=== PATIENT | female | born 1945 | race Caucasian/White ===

== ENCOUNTER 2019-11-27 06:11 | Day surgery (SDC) | payer MEDICARE ==
[2019-11-19 14:18] LABS: BASOPHILS % (AUTO) 0.7 % (0-1); EOSINOPHILS # (AUTO) 0.1 X10'3 (0-0.9); EOSINOPHILS % (AUTO) 1.7 % (0-6); LYMPHOCYTES # (AUTO) 1.9 X10'3 (1.1-4.8); LYMPHOCYTES % (AUTO) 29.4 % (21-51); MEAN CORPUSCULAR HEMOGLOBIN 34.9 PG (27.0-31.0); MEAN CORPUSCULAR HGB CONC 33.8 g/dL (33.0-36.5); MEAN CORPUSCULAR VOLUME 103.4 FL (78-98); MONOCYTES # (AUTO) 0.7 X10'3 (0-0.9); MONOCYTES % (AUTO) 10.1 % (2-12); NEUTROPHILS # (AUTO) 3.8 X10'3 (1.8-7.7); NEUTROPHILS % (AUTO) 58.1 % (42-75); PRE OP HEMATOCRIT 41.1 % (35.0-45.0); PRE OP HEMOGLOBIN 13.9 g/dL (12.0-16.0); PRE OP PLATELET COUNT 308 X10'3 (140-440); RED BLOOD COUNT 3.98 X10'6 (4.20-5.60); RED CELL DISTRIBUTION WIDTH 13.9 % (11.5-14.5)
[2019-11-19 14:37] LABS: ALBUMIN 3.5 G/DL (3.4-5.0); ALBUMIN/GLOBULIN RATIO 0.9 (1.1-1.5); ALKALINE PHOSPHATASE 80 IU/L (46-116); BLOOD UREA NITROGEN 12 MG/DL (7-18); BUN/CREATININE RATIO 12.9 (6.6-38.0); CALCIUM 8.9 MG/DL (8.5-10.1); CHLORIDE 106 MMOL/L (99-107); CREATININE 0.93 MG/DL (0.40-0.90); PRE OP ALT 16 U/L (30-65); PRE OP ANION GAP 8 (8-16); PRE OP AST 19 U/L (10-37); PRE OP BILIRUB, TOTAL 0.4 MG/DL (0.0-1.0); PRE OP GLUCOSE 110 MG/DL (70-104); PRE OP POTASSIUM 4.1 MMOL/L (3.4-5.1); PRE OP SODIUM 142 MMOL/L (135-145); TOTAL CARBON DIOXIDE 27.7 MMOL/L (24-32); TOTAL PROTEIN 7.3 G/DL (6.4-8.2); eGFR 59 ML/MIN
[~2019-11-27] VITALS: Ht 167.6 cm; Wt 90.7 kg
[~2019-11-27 06:11] MED LIST: CALC-855 PO; CITA20TA28 PO; DENO60DI SUBCUT; LISI40TA4 PO; METF-900 PO; OMEP20CA15 PO; SIMV-42 PO; VENL-191 PO; cefazolin/dext.iso 2gm/50ml 50 ML IV ONE; famotidine 20mg tablet PO ONE; ringers solution, lacted 1,000 ML IV SCH
[2019-11-27] MEDS ORDERED: BUPIVAcaine/PF 2.5mg/ml (0.25%) 10ml vial ONE (06:39)
[2019-11-27 06:50] VITALS: BP_SYST 162; BP_SYST 169; BP_DIAS 102; BP_DIAS 91
[2019-11-27] MEDS ORDERED: ringers solution, lacted 1,000 ML IV SCH (07:16)
[2019-11-27] MEDS ORDERED: meperidine/PF 25mg/ml syringe IV PRN ×3 (07:20)
[2019-11-27] MEDS ORDERED: proCHLORperazine 10 MG/2 ml inj IV PRN (07:20)
[2019-11-27] MEDS ORDERED: LIDOcaine 0.5% (5mg/ml) 50ml vial ONE (07:20)
[2019-11-27] MEDS ORDERED: ondansetron/PF 4mg/2ml inj IV PRN (07:20)
[2019-11-27] MEDS ORDERED: morphine 2 MG/ML inj. syringe IV PRN (07:20)
[2019-11-27] MEDS ORDERED: morphine 4 MG/ML inj SYRINge IV PRN (07:20)
[2019-11-27] MEDS ORDERED: fentaNYL/PF 50MCG/1 ML 2ML syringe ONE (08:25)
[2019-11-27] MEDS ORDERED: midazolam 2 mg/2 ml injection ONE (08:25)
[2019-11-27 08:50] VITALS: BP 134/70
--- NOTE | 2019-11-27 08:50 | NUR ---
Received from OR via [facility] , accompanied by Anesthesiologist LYDIA and report given by Anesthesiolgist. PATIENT WITH 20G PIV IN RIGHT UE RUNNING LR AT 100. DENIES PAIN . LEFT WRIST DRESSING IS CDI. VSS.
[2019-11-27 09:00] VITALS: BP 133/86
[2019-11-27 09:10] VITALS: BP 135/89
[2019-11-27 09:20] VITALS: BP 130/87
--- NOTE | 2019-11-27 09:30 | NUR ---
I HAVE REVIEWED D/C INSTRUCTIONS WITH PATIENT AND FAMILY AND THEY HAVE VERBALIZED UNDERSTANDING. PATIENT D/C HOME WITH ALL BELONGINGS AND FAMILY GAVE TRANSPORT HOME. Addendum: 11/27/19 at 0939 by Ken Schafer RN, RN Amended: Links added.
== END 2019-11-27 09:30 | disposition home or self-care (01) ==
LOC: PAS 06:11
PROVIDERS: ATTEND Orthopaedic Surgery Hand Surgery
DX: G56.02 Carpal tunnel syndrome, left upper limb (principal); I10 Essential (primary) hypertension; F41.8 Other specified anxiety disorders; M81.0 Age-related osteoporosis without current pathological fracture; K21.9 Gastro-esophageal reflux disease without esophagitis; Z79.899 Other long term (current) drug therapy; Z98.890 Other specified postprocedural states; Z87.891 Personal history of nicotine dependence; Z72.89 Other problems related to lifestyle; Z11.59 Encounter for screening for other viral diseases
CPT/HCPCS: 36415; 64721; 80053; 82948; 85025; 93005; J2001; J2250; J3010; J3490; U0003; A4215; J7120

== ENCOUNTER 2020-01-11 06:59 | Day surgery (SDC) | payer MEDICARE ==
[2020-01-05 11:18] LABS: BASOPHILS % (AUTO) 0.8 % (0-1); EOSINOPHILS # (AUTO) 0.1 X10'3 (0-0.9); EOSINOPHILS % (AUTO) 2.2 % (0-6); LYMPHOCYTES # (AUTO) 1.4 X10'3 (1.1-4.8); LYMPHOCYTES % (AUTO) 24.4 % (21-51); MEAN CORPUSCULAR HEMOGLOBIN 34.5 PG (27.0-31.0); MEAN CORPUSCULAR HGB CONC 33.3 g/dL (33.0-36.5); MEAN CORPUSCULAR VOLUME 103.5 FL (78-98); MEAN PLATELET VOLUME 7.8 FL (7.4-10.4); MONOCYTES # (AUTO) 0.6 X10'3 (0-0.9); MONOCYTES % (AUTO) 9.7 % (2-12); NEUTROPHILS # (AUTO) 3.7 X10'3 (1.8-7.7); NEUTROPHILS % (AUTO) 62.9 % (42-75); PRE OP HEMATOCRIT 41.7 % (35.0-45.0); PRE OP HEMOGLOBIN 13.9 g/dL (12.0-16.0); PRE OP PLATELET COUNT 315 X10'3 (140-440); RED BLOOD COUNT 4.03 X10'6 (4.20-5.60); RED CELL DISTRIBUTION WIDTH 13.8 % (11.5-14.5)
[2020-01-05 11:29] LABS: ALBUMIN 3.6 G/DL (3.4-5.0); ALBUMIN/GLOBULIN RATIO 0.9 (1.1-1.5); ALKALINE PHOSPHATASE 76 IU/L (46-116); BLOOD UREA NITROGEN 10 MG/DL (7-18); BUN/CREATININE RATIO 11.8 (6.6-38.0); CHLORIDE 106 MMOL/L (99-107); CREATININE 0.85 MG/DL (0.40-0.90); PRE OP ALT 19 U/L (30-65); PRE OP ANION GAP 8 (8-16); PRE OP AST 15 U/L (10-37); PRE OP BILIRUB, TOTAL 0.5 MG/DL (0.0-1.0); PRE OP GLUCOSE 95 MG/DL (70-104); PRE OP POTASSIUM 4.3 MMOL/L (3.4-5.1); PRE OP SODIUM 141 MMOL/L (135-145); TOTAL CARBON DIOXIDE 27.5 MMOL/L (24-32); TOTAL PROTEIN 7.6 G/DL (6.4-8.2); eGFR 65 ML/MIN
[~2020-01-11] VITALS: Ht 167.6 cm; Wt 91.0 kg
[~2020-01-11 06:59] MED LIST changes: +ceFAZolin 2gm in dextrose, iso 50 ML IV ONE; -cefazolin/dext.iso 2gm/50ml 50 ML IV ONE
[2020-01-11 07:20] VITALS: BP_SYST 130; BP_DIAS 82; BP_DIAS 92
[2020-01-11] MEDS ORDERED: LIDOcaine 0.5% (5mg/ml) 50ml vial ONE (08:00)
[2020-01-11] MEDS ORDERED: fentaNYL/PF 50MCG/1 ML 2ML syringe ONE ×2 (08:05→09:25)
[2020-01-11] MEDS ORDERED: MIDAZolam 1mg/ml 10ml vial ONE (08:05)
[2020-01-11] MEDS ORDERED: ringers solution, lacted 1,000 ML IV SCH (08:13)
[2020-01-11] MEDS ORDERED: morphine 4 MG/ML inj SYRINge IV PRN (08:15)
[2020-01-11] MEDS ORDERED: fentaNYL/PF 50MCG/1 ML 2ML syringe IV PRN ×2 (08:15)
[2020-01-11] MEDS ORDERED: morphine 2 MG/ML inj. syringe IV PRN (08:15)
[2020-01-11] MEDS ORDERED: labetalol 20mg/4ml (5mg/ml) syringe IV PRN (08:15)
[2020-01-11] MEDS ORDERED: hydrALAZINE 20mg/ml inj. IV PRN (08:15)
[2020-01-11] MEDS ORDERED: ondansetron/PF 4mg/2ml inj IV PRN (08:15)
[2020-01-11] MEDS ORDERED: LIDOcaine 2% (20mg/ml) 5ml vial ONE (08:56)
[2020-01-11] MEDS ORDERED: propofol inj 20 ML IV ONE (08:56)
[2020-01-11] MEDS ORDERED: BUPIVAcaine/PF 2.5mg/ml (0.25%) 10ml vial ONE (09:15)
[2020-01-11] MEDS ORDERED: MIDAZolam 5mg/5ml vial ONE (09:25)
[2020-01-11] MEDS ORDERED: labetalol 20mg/4ml (5mg/ml) syringe IV ONE (09:43)
[2020-01-11 09:49] VITALS: BP 145/74
--- NOTE | 2020-01-11 09:49 | NUR ---
Received from OR via [facility], accompanied by Anesthesiologist DR Borges and report given by Anesthesiolgist. PATIENT A&OX4, DENIES PAIN, V/S WNL, NEUROVASCULAR CHECKS INTACT, 20G PIV LUE, SCD ON, DRESSING TO RIGHT WRIST CDI ELEVATED WITH ICEBAG APPLIED.
[2020-01-11 10:00] VITALS: BP 140/85
[2020-01-11 10:10] VITALS: BP 151/82
[2020-01-11 10:20] VITALS: BP 128/76
[2020-01-11 10:30] VITALS: BP 134/80
--- NOTE | 2020-01-11 10:49 | NUR ---
PATIENT A&OX4, DENIES PAIN, V/S WNL, NEUROVASCULAR CHECKS INTACT, 20G PIV LUE D/C, SCD OFF, DRESSING TO RIGHT WRIST CDI ELEVATED WITH ICEBAG APPLIED. I HAVE REVIEWED D/C INSTRUCTIONS WITH PATIENT AND FAMILY AND THEY HAVE VERBALIZED UNDERSTANDING. ALL BELONGINGS RETURNED TO PATIENT. PATIENT D/C HOME WITH ALL BELONGINGS AND FAMILY GAVE TRANSPORT HOME. MD STATES OKAY TO TAKE IBUPROFEN AND TYLENOL.
[2020-01-11] MEDS ORDERED: BUPIVAcaine/PF 2.5mg/ml (0.25%) 10ml vial IJ ONE (14:46)
== END 2020-01-11 10:49 | disposition home or self-care (01) ==
LOC: PAS 06:59
PROVIDERS: ATTEND Orthopaedic Surgery Hand Surgery
DX: G56.01 Carpal tunnel syndrome, right upper limb (principal); Z11.59 Encounter for screening for other viral diseases; F41.8 Other specified anxiety disorders; E11.9 Type 2 diabetes mellitus without complications; I10 Essential (primary) hypertension; M81.0 Age-related osteoporosis without current pathological fracture; Z98.890 Other specified postprocedural states; M19.90 Unspecified osteoarthritis, unspecified site; Z87.891 Personal history of nicotine dependence; Z72.89 Other problems related to lifestyle; Z79.899 Other long term (current) drug therapy; Z68.34 Body mass index [BMI] 34.0-34.9, adult; Z85.3 Personal history of malignant neoplasm of breast
CPT/HCPCS: 36415; 64721; 80053; 82948; 85025; J2001; J2250; J2704; J3010; J3490; U0003; A4215; A6449; J7120

== ENCOUNTER 2020-05-15 10:31 | Inpatient (IN) | payer MEDICARE ==
[~2020-05-15] VITALS: Ht 167.6 cm; Wt 90.9 kg
[~2020-05-15 10:31] MED LIST changes: -ceFAZolin 2gm in dextrose, iso 50 ML IV ONE; -famotidine 20mg tablet PO ONE; -ringers solution, lacted 1,000 ML IV SCH
[2020-05-15 11:53] LABS: BASOPHILS # (AUTO) 0.1 X10'3 (0-0.2); BASOPHILS % (AUTO) 0.7 % (0-1); EOSINOPHILS # (AUTO) 0.1 X10'3 (0-0.9); EOSINOPHILS % (AUTO) 1.1 % (0-6); HEMATOCRIT 42.2 % (35.0-45.0); HEMOGLOBIN 14.4 g/dl (12.0-16.0); LYMPHOCYTES # (AUTO) 1.3 X10'3 (1.1-4.8); LYMPHOCYTES % (AUTO) 17.4 % (21-51); MEAN CORPUSCULAR HEMOGLOBIN 34.3 PG (27.0-31.0); MEAN CORPUSCULAR HGB CONC 34.1 g/dL (33.0-36.5); MEAN CORPUSCULAR VOLUME 100.4 FL (78-98); MEAN PLATELET VOLUME 7.5 FL (7.4-10.4); MONOCYTES # (AUTO) 0.6 X10'3 (0-0.9); MONOCYTES % (AUTO) 8.2 % (2-12); NEUTROPHILS # (AUTO) 5.5 X10'3 (1.8-7.7); NEUTROPHILS % (AUTO) 72.6 % (42-75); PLATELET COUNT 401 X10'3 (140-440); RED CELL DISTRIBUTION WIDTH 13.7 % (11.5-14.5); WHITE BLOOD COUNT 7.6 X10'3 (4.5-11.0)
[2020-05-15] MEDS ORDERED: iohexol 350MG/ML 100ml bottle IV ONE (11:54)
[2020-05-15] MEDS ORDERED: iohexol 300mg/ml 100ml inj. ONE (11:58)
[2020-05-15 12:01] LABS: ALANINE AMINOTRANSFERASE 19 U/L (12-78); ALBUMIN/GLOBULIN RATIO 0.9 (1.1-1.5); ALKALINE PHOSPHATASE 88 IU/L (46-116); ANION GAP 10 (8-16); ASPARTATE AMINO TRANSFERASE 18 U/L (10-37); BILIRUBIN,TOTAL 0.6 MG/DL (0.1-1.0); BLOOD UREA NITROGEN 10 MG/DL (7-18); BUN/CREATININE RATIO 11.4 (6.6-38.0); CALCIUM 9.5 MG/DL (8.5-10.1); CHLORIDE 102 MMOL/L (99-107); CREATININE 0.88 MG/DL (0.40-0.90); GLUCOSE 106 MG/DL (70-104); POTASSIUM 4.1 MMOL/L (3.5-5.1); SODIUM 138 MMOL/L (135-145); TOTAL CARBON DIOXIDE 25.8 MMOL/L (24-32); TOTAL PROTEIN 8.4 G/DL (6.4-8.2); eGFR 63 ML/MIN
[2020-05-15 12:15] LABS: C-REACTIVE PROTEIN 0.97 MG/DL (0.0-0.5); FERRITIN 48 NG/ML (8-252); LACTATE DEHYDROGENASE 217 U/L (81-234); MAGNESIUM 1.9 MG/DL (1.5-2.4)
--- NOTE | 2020-05-15 13:26 | NUR ---
Patient updated on POC. She is resting comfortably in bed.
[2020-05-15] MEDS ORDERED: HYDROcodone/acetaminophen 5mg/325mg tablet PO PRN (13:30)
[2020-05-15] MEDS ORDERED: potassium CL 10mEq/100ml bag 100 ML IV PRN ×2 (13:30)
[2020-05-15] MEDS ORDERED: bisacodyl 10mg suppository rectal RC PRN (13:30)
[2020-05-15] MEDS ORDERED: magnesium 2GM in 50ml NS 50 ML IV PRN (13:30)
[2020-05-15] MEDS ORDERED: ondansetron/PF 4mg/2ml inj IV PRN (13:30)
[2020-05-15] MEDS ORDERED: acetaminophen 325mg tablet PO PRN ×2 (13:30)
[2020-05-15] MEDS ORDERED: magnesium hydroxide 30ml (MOM) UD suspension PO PRN (13:30)
[2020-05-15] MEDS ORDERED: magnesium Cl slow-release 64mg tablet PO PRN (13:30)
[2020-05-15] MEDS ORDERED: magnesium 4gm in 100ml NS 100 ML IV PRN (13:30)
[2020-05-15] MEDS ORDERED: mag hydrox/Alum hydrox/simeth 30ml oral suspension PO PRN (13:30)
[2020-05-15] MEDS ORDERED: potassium Cl 20 mEq SR tablet PO PRN ×2 (13:30)
[2020-05-15] MEDS ORDERED: ESTR42.510 VG (13:49)
[2020-05-15] MEDS ORDERED: BACDS PO (13:49)
[2020-05-15] MEDS ORDERED: METF-950 PO (13:49)
[2020-05-15] MEDS ORDERED: VENL150C58 PO (13:49)
[2020-05-15 14:42] LABS: PARTIAL THROMBOPLASTIN TIME 28 SECONDS (22-32)
--- NOTE | 2020-05-15 16:03 | NUR ---
Patient in room ED 6. I have received report from WIN barton RN and had the opportunity to ask questions and assume patient care.
[2020-05-15 17:00] VITALS: BP 150/87
--- NOTE | 2020-05-15 17:00 | NUR ---
received pt into room 307,oriented to surroundings,pt SOB with minimal exertion,V/S stable moniter shows sinus rhythm
[2020-05-15 18:00] VITALS: BP 162/81
--- NOTE | 2020-05-15 18:09 | NUR ---
Patient in room MED 307. I have received report from CLAUDE LEOS and had the opportunity to ask questions and assume patient care.
--- NOTE | 2020-05-15 18:13 | NUR ---
Problems reprioritized. Patient report given, questions answered & plan of care reviewed with alex pappas.
[2020-05-15 19:25] LABS: HEMOGLOBIN A1C 5.9 % (4.5-6.2)
[2020-05-15] MEDS: K and/or MAG REPLACEMENT MC SCH (20:00)
[2020-05-15] MEDS: temazepam 15mg capsule PO PRN (20:59)
[2020-05-15] MEDS: atorvastatin 20mg tablet PO SCH (21:00)
--- NOTE | 2020-05-15 21:10 | NUR ---
PATIENT STATED SHE ALREADY TOOK ATORVASTATIN THIS AM, PATIENT REFUSED MED. EDIN LEOS
[2020-05-15 22:00] VITALS: BP 158/77
[2020-05-16] VITALS (12 sets, daily range): BP systolic 103–159; BP diastolic 62–97
[2020-05-16 05:36] LABS: HEMATOCRIT 38.7 % (35.0-45.0); HEMOGLOBIN 13.1 g/dl (12.0-16.0); MEAN CORPUSCULAR HEMOGLOBIN 34.4 PG (27.0-31.0); MEAN CORPUSCULAR HGB CONC 33.9 g/dL (33.0-36.5); MEAN CORPUSCULAR VOLUME 101.4 FL (78-98); MEAN PLATELET VOLUME 7.3 FL (7.4-10.4); PLATELET COUNT 329 X10'3 (140-440); RED BLOOD COUNT 3.81 X10'6 (4.20-5.60); RED CELL DISTRIBUTION WIDTH 13.7 % (11.5-14.5); WHITE BLOOD COUNT 6.6 X10'3 (4.5-11.0)
[2020-05-16 05:37] LABS: ALBUMIN 3.2 G/DL (3.4-5.0); ANION GAP 11 (8-16); BLOOD UREA NITROGEN 10 MG/DL (7-18); BUN/CREATININE RATIO 11.4 (6.6-38.0); CHLORIDE 107 MMOL/L (99-107); CREATININE 0.88 MG/DL (0.40-0.90); GLUCOSE 98 MG/DL (70-104); POTASSIUM 3.8 MMOL/L (3.5-5.1); SODIUM 140 MMOL/L (135-145); TOTAL CARBON DIOXIDE 21.9 MMOL/L (24-32); eGFR 63 ML/MIN
--- NOTE | 2020-05-16 06:13 | NUR ---
Problems reprioritized. Patient report given, questions answered & plan of care reviewed with Kareen LEOS.
--- NOTE | 2020-05-16 06:15 | NUR ---
Patient in room MED 307. I have received report from DERIC Alaniz and had the opportunity to ask questions and assume patient care.
[2020-05-16] MEDS: K and/or MAG REPLACEMENT MC SCH ×2 (08:00→20:00)
[2020-05-16] MEDS ORDERED: furosemide 40mg/4ml inj IV SCH (08:05)
[2020-05-16] MEDS: lisinopril 20mg tablet PO SCH (08:10)
[2020-05-16] MEDS: pantoprazole 40mg Tablet.DR PO SCH (08:10)
[2020-05-16] MEDS: citalopram 20mg tablet PO SCH (08:11)
[2020-05-16] MEDS: venlafaxine XR 75mg capsule (Q24H) PO SCH (08:11)
--- NOTE | 2020-05-16 09:05 | NUR ---
NOTIFIED PAGER ID: [phone] MESSAGE: [phone] CHAN'S OFFICE SENT ECHO. FIBRINOGEN LAB ORDERED IN ER BUT WAS NEVER DRAW. WOULD YOU STILL LIKE THAT LAB? ACCE EXT [id number]
--- NOTE | 2020-05-16 11:00 | NUR ---
IR in room for thorcentesis, pigtail chest tube placed to left lateral mid axillary area ,to suction 400 dark red drainage returned immediately,Ir advised nursing to moniter output closely,remove from suction or clamp tube as needed ,as pt tolerates anticipated high output
[2020-05-16 11:32] LABS: BFSOURCE LEFT PLEURAL FLD; PLEURAL FLUID PH 7.132 (7.63-7.65)
[2020-05-16 11:49] LABS: GLUCOSE,BODY FLUID 9 MG/DL; LDH,BODY FLUID 707 U/L; TOTAL PROTEIN,BODY FLUID 6.1 G/DL
[2020-05-16 12:18] LABS: BF RBC COUNT 1527500 /CU MM; BF WBC COUNT 2500 /CU MM (0-1000); BFAPPEAR TURBID; BFCOLOR RED; BFVOLUME 53 ML; NEUTROPHILS,BODY FLUID 53 %
[2020-05-16 12:19] LABS: LYMPHOCYTES,BODY FLUID 42 %; MONOCYTES,BODY FLUID 5 %
--- NOTE | 2020-05-16 13:30 | NUR ---
Chest tube suction removed at 800 cc dark red output,pt c/o occ twinge.
[2020-05-16] MEDS: HYDROcodone/acetaminophen 10/325mg tab PO PRN ×2 (13:37→20:49)
--- NOTE | 2020-05-16 14:30 | NUR ---
chest tube back to suction,with 400 cc out ,pt c/o pain with deep breathe, medicated with x1 norco po
[2020-05-16] MEDS ORDERED: HYDROmorphone inj. 0.5 MG/0.5 ML DISP.SYRIN IV PRN ×2 (15:25→16:25)
--- NOTE | 2020-05-16 15:30 | NUR ---
Dr. Arcos at bedside,aware of output of chest tube currently at 1400cc,clamped at this time,due to pt.pain level with deep breath 8/10, order taken for dilaudid iv,given with good relief, chest tube unclamped after 1 hour connected to suction with 200 cc output
[2020-05-16] MEDS ORDERED: HYDROmorphone 1 mg/ml syringe IV PRN (16:25)
[2020-05-16] MEDS ORDERED: LORazepam 1 MG tablet PO PRN (16:25)
[2020-05-16] MEDS ORDERED: LORazepam 2 mg/ml vial IV PRN (16:25)
--- NOTE | 2020-05-16 18:52 | NUR ---
Problems reprioritized. Patient report given, questions answered & plan of care reviewed with alex FARMER.
--- NOTE | 2020-05-16 18:55 | NUR ---
Patient in room MED 307. I have received report from Kasey, and had the opportunity to ask questions and assume patient care.
[2020-05-16] MEDS: atorvastatin 20mg tablet PO SCH (20:49)
[2020-05-17 02:00] VITALS: BP 109/76
--- NOTE | 2020-05-17 03:01 | NUR ---
Patient on home BiPAP, O2 sat shows at 87-93. The patient's mask has not a good seal around it and patient does not want to keep the mask tight. Cesia-DERIC, the charge nurse is aware of the issue.
--- NOTE | 2020-05-17 04:38 | NUR ---
No MRSA culture was done on admission to the floor. Will get it this am. Patient currently resting and on CPAP.
[2020-05-17 05:59] LABS: HEMATOCRIT 38.8 % (35.0-45.0); HEMOGLOBIN 13.1 g/dl (12.0-16.0); MEAN CORPUSCULAR HEMOGLOBIN 34.6 PG (27.0-31.0); MEAN CORPUSCULAR HGB CONC 33.7 g/dL (33.0-36.5); MEAN CORPUSCULAR VOLUME 102.9 FL (78-98); MEAN PLATELET VOLUME 7.5 FL (7.4-10.4); PLATELET COUNT 344 X10'3 (140-440); RED BLOOD COUNT 3.77 X10'6 (4.20-5.60); RED CELL DISTRIBUTION WIDTH 13.9 % (11.5-14.5); WHITE BLOOD COUNT 12.3 X10'3 (4.5-11.0)
[2020-05-17 06:00] VITALS: BP 110/33
[2020-05-17 06:05] LABS: ALBUMIN 3.3 G/DL (3.4-5.0); ANION GAP 8 (8-16); BLOOD UREA NITROGEN 22 MG/DL (7-18); CALCIUM 9.4 MG/DL (8.5-10.1); CHLORIDE 103 MMOL/L (99-107); CREATININE 1.47 MG/DL (0.40-0.90); GLUCOSE 114 MG/DL (70-104); MAGNESIUM 2.2 MG/DL (1.5-2.4); POTASSIUM 4.2 MMOL/L (3.5-5.1); SODIUM 137 MMOL/L (135-145); TOTAL CARBON DIOXIDE 25.7 MMOL/L (24-32); eGFR 35 ML/MIN
--- NOTE | 2020-05-17 06:20 | NUR ---
Problems reprioritized. Patient report given to Kasey, questions answered & plan of care reviewed with .
--- NOTE | 2020-05-17 06:20 | NUR ---
Patient in room MED 307. I have received report from alex mariee and had the opportunity to ask questions and assume patient care.
[2020-05-17] MEDS: K and/or MAG REPLACEMENT MC SCH ×2 (08:00→20:00)
[2020-05-17] MEDS: pantoprazole 40mg Tablet.DR PO SCH (08:49)
[2020-05-17] MEDS: citalopram 20mg tablet PO SCH (08:50)
[2020-05-17] MEDS: venlafaxine XR 75mg capsule (Q24H) PO SCH (08:50)
[2020-05-17] MEDS: lisinopril 20mg tablet PO SCH (08:53)
[2020-05-17 10:00] VITALS: BP 110/60
[2020-05-17 14:00] VITALS: BP 113/65
--- NOTE | 2020-05-17 18:25 | NUR ---
Problems reprioritized. Patient report given, questions answered & plan of care reviewed with DERIC FARMER.
[2020-05-17 19:00] VITALS: BP 104/65
[2020-05-17] MEDS: atorvastatin 20mg tablet PO SCH (20:38)
[2020-05-17 22:00] VITALS: BP 106/64
--- NOTE | 2020-05-17 22:03 | NUR ---
Chest tube atrium change. The total fluid in old atrium was 1850cc. There is no air leak in the new atrium, patent, to wall suction.
[2020-05-18 02:00] VITALS: BP 132/63
[2020-05-18 06:00] VITALS: BP 120/44
--- NOTE | 2020-05-18 06:27 | NUR ---
Problems reprioritized. Patient report given to ManuelRN, questions answered & plan of care reviewed with .
--- NOTE | 2020-05-18 06:55 | NUR ---
Patient in room MED 307. I have received report from DERIC Olmstead and had the opportunity to ask questions and assume patient care.
[2020-05-18 07:01] LABS: HEMATOCRIT 37.5 % (35.0-45.0); HEMOGLOBIN 12.7 g/dl (12.0-16.0); MEAN CORPUSCULAR HEMOGLOBIN 34.5 PG (27.0-31.0); MEAN CORPUSCULAR HGB CONC 33.9 g/dL (33.0-36.5); MEAN CORPUSCULAR VOLUME 101.6 FL (78-98); PLATELET COUNT 348 X10'3 (140-440); RED BLOOD COUNT 3.69 X10'6 (4.20-5.60); RED CELL DISTRIBUTION WIDTH 13.5 % (11.5-14.5)
[2020-05-18 07:22] LABS: ALBUMIN 2.9 G/DL (3.4-5.0); ANION GAP 11 (8-16); BLOOD UREA NITROGEN 25 MG/DL (7-18); BUN/CREATININE RATIO 22.5 (6.6-38.0); CALCIUM 9.6 MG/DL (8.5-10.1); CHLORIDE 103 MMOL/L (99-107); CREATININE 1.11 MG/DL (0.40-0.90); GLUCOSE 96 MG/DL (70-104); MAGNESIUM 2.2 MG/DL (1.5-2.4); POTASSIUM 3.9 MMOL/L (3.5-5.1); SODIUM 138 MMOL/L (135-145); TOTAL CARBON DIOXIDE 24.5 MMOL/L (24-32); eGFR 48 ML/MIN
[2020-05-18] MEDS: K and/or MAG REPLACEMENT MC SCH ×2 (08:00→20:00)
[2020-05-18] MEDS: citalopram 20mg tablet PO SCH (08:04)
[2020-05-18] MEDS: venlafaxine XR 75mg capsule (Q24H) PO SCH (08:04)
[2020-05-18] MEDS: pantoprazole 40mg Tablet.DR PO SCH (08:04)
[2020-05-18] MEDS: lisinopril 20mg tablet PO SCH (08:05)
[2020-05-18] MEDS ORDERED: ipratropium/albuterol 3ml nebule NEB PRN (10:50)
[2020-05-18 11:00] VITALS: BP 135/78
[2020-05-18 15:00] VITALS: BP 108/72
--- NOTE | 2020-05-18 17:25 | NUR ---
Student documentation: I have reviewed and agree with all interventions, assessments performed and documented by VIRGILIO Mitchell.
[2020-05-18 18:00] VITALS: BP 141/73
--- NOTE | 2020-05-18 18:23 | NUR ---
Problems reprioritized. Patient report given, questions answered & plan of care reviewed with DERIC Infante.
--- NOTE | 2020-05-18 18:23 | NUR ---
Patient in room MED 307. I have received report from Lyudmila LEOS and had the opportunity to ask questions and assume patient care.
--- NOTE | 2020-05-18 19:00 | NUR ---
patient overestimates mobility level. Patient was educated about using call light. Patient refuses to use call light when needed and gets up on her own. This puts patient at a fall risk with her chest tube and muscle weakness. Bed alarm was put on for patient safety
[2020-05-18] MEDS: temazepam 15mg capsule PO PRN (20:10)
[2020-05-18] MEDS: atorvastatin 20mg tablet PO SCH (20:10)
[2020-05-18 22:00] VITALS: BP 129/78
[2020-05-19 02:00] VITALS: BP 129/69
[2020-05-19 06:00] VITALS: BP 138/79
--- NOTE | 2020-05-19 06:11 | NUR ---
Problems reprioritized. Patient report given, questions answered & plan of care reviewed with Lyudmila Morales.
--- NOTE | 2020-05-19 06:12 | NUR ---
Patient in room MED 307. I have received report from DERIC Infante and had the opportunity to ask questions and assume patient care.
[2020-05-19 07:03] LABS: HEMATOCRIT 39.6 % (35.0-45.0); HEMOGLOBIN 13.4 g/dl (12.0-16.0); MEAN CORPUSCULAR HEMOGLOBIN 34.3 PG (27.0-31.0); MEAN CORPUSCULAR HGB CONC 33.7 g/dL (33.0-36.5); MEAN CORPUSCULAR VOLUME 101.8 FL (78-98); MEAN PLATELET VOLUME 7.5 FL (7.4-10.4); PLATELET COUNT 378 X10'3 (140-440); RED BLOOD COUNT 3.89 X10'6 (4.20-5.60); WHITE BLOOD COUNT 7.9 X10'3 (4.5-11.0)
[2020-05-19 07:52] LABS: ANION GAP 10 (8-16); BLOOD UREA NITROGEN 19 MG/DL (7-18); BUN/CREATININE RATIO 18.8 (6.6-38.0); CALCIUM 9.7 MG/DL (8.5-10.1); CHLORIDE 102 MMOL/L (99-107); CREATININE 1.01 MG/DL (0.40-0.90); GLUCOSE 92 MG/DL (70-104); MAGNESIUM 2.1 MG/DL (1.5-2.4); POTASSIUM 3.9 MMOL/L (3.5-5.1); SODIUM 139 MMOL/L (135-145); TOTAL CARBON DIOXIDE 27.5 MMOL/L (24-32); eGFR 53 ML/MIN
[2020-05-19] MEDS: K and/or MAG REPLACEMENT MC SCH (08:00)
[2020-05-19] MEDS ORDERED: heparin, porcine 5000 units/ml vial SQ SCH (08:00)
[2020-05-19] MEDS: pantoprazole 40mg Tablet.DR PO SCH (08:19)
[2020-05-19] MEDS: venlafaxine XR 75mg capsule (Q24H) PO SCH (08:20)
[2020-05-19] MEDS: citalopram 20mg tablet PO SCH (08:20)
[2020-05-19 08:21] VITALS: BP_SYST 128
[2020-05-19] MEDS: lisinopril 20mg tablet PO SCH (08:21)
[2020-05-19] MEDS ORDERED: ALBU8.5H8 INH (11:51)
--- NOTE | 2020-05-19 14:59 | NUR ---
pt. discharged from facility at 1230. pt. was wheeled to lobby by staff and picked up by her family. pt. signed and understood all paperwork. pt. new meds were called into [address] pt. understands to make f/u ruy. pt. IV was d/c intact. pt. left with all belongings.
== END 2020-05-19 12:30 | disposition home or self-care (01) | DRG 843 ==
LOC: ER 10:31 → ED HOLD 13:27 → UNDOADMIN 14:51 → MED 3N 17:10 → ED HOLD 17:10
PROVIDERS: ADMIT Family Medicine; ATTEND Family Medicine
PROC: BW251ZZ Computerized Tomography (CT Scan) of Chest, Abdomen and Pelvis using Low Osmolar Contrast (ICD-10-PCS; 2020-05-15)
PROC: 0W9B30Z Drainage of Left Pleural Cavity with Drainage Device, Percutaneous Approach (ICD-10-PCS; principal; 2020-05-16)
PROC: 5A09357 Assistance with Respiratory Ventilation, Less than 24 Consecutive Hours, Continuous Positive Airway Pressure (ICD-10-PCS; 2020-05-17)
PROC: 5A09357 Assistance with Respiratory Ventilation, Less than 24 Consecutive Hours, Continuous Positive Airway Pressure (ICD-10-PCS; 2020-05-19)
DX: C79.89 Secondary malignant neoplasm of other specified sites (principal); N17.0 Acute kidney failure with tubular necrosis; F41.0 Panic disorder [episodic paroxysmal anxiety]; E11.9 Type 2 diabetes mellitus without complications; E78.5 Hyperlipidemia, unspecified; Z20.828 Contact with and (suspected) exposure to other viral communicable diseases; F41.1 Generalized anxiety disorder; K21.9 Gastro-esophageal reflux disease without esophagitis; G47.33 Obstructive sleep apnea (adult) (pediatric); I10 Essential (primary) hypertension; Z85.3 Personal history of malignant neoplasm of breast; Z90.12 Acquired absence of left breast and nipple; Z87.891 Personal history of nicotine dependence; Z92.3 Personal history of irradiation; Z98.1 Arthrodesis status; J91.0 Malignant pleural effusion
CPT/HCPCS: 32557; 36415; 71045; 71046; 71260; 74177; 80048; 80053; 82728; 82945; 82948; 83036; 83615; 83735; 83880; 83986; 84145; 84157; 84484; 85025; 85027; 85610; 85730; 86140; 87070; 87081; 87635; 88108; 88305; 88341; 88342; 89051; 93005; 94760; 99285; C9803; G0378; J1170; J1644; J1940; Q9967

== ENCOUNTER 2020-07-12 08:00 | Day surgery (SDC) | payer MEDICARE ==
[~2020-07-12] VITALS: Ht 167.6 cm; Wt 83.9 kg
[~2020-07-12 08:00] MED LIST changes: +ALPR0.5T9 PO; +CHOL100062 PO; +ESCI10TA66 PO; +ESTR42.510 VG; +FEXO-124 PO; -METF-900 PO; +METF-950 PO; -VENL-191 PO; +VENL150C58 PO
[2020-07-12] MEDS ORDERED: albumin 25% 100mL bottle x 1 IV PRN (08:30)
[2020-07-12 08:35] VITALS: BP 119/41
[2020-07-12 09:30] VITALS: BP 118/32
[2020-07-12 09:45] VITALS: BP 122/85
[2020-07-12] MEDS ORDERED: ibuprofen tablet 400 MG TABLET PO ONE (09:55)
[2020-07-12] MEDS ORDERED: acetaminophen 325mg tablet PO PRN (09:55)
[2020-07-12 10:40] VITALS: BP 121/90
== END 2020-07-12 10:40 | disposition home or self-care (01) ==
LOC: SSTAY O 08:00
PROVIDERS: ATTEND Radiology Vascular & Interventional Radiology
DX: J90 Pleural effusion, not elsewhere classified (principal); F41.0 Panic disorder [episodic paroxysmal anxiety]; I10 Essential (primary) hypertension; E78.5 Hyperlipidemia, unspecified; E11.9 Type 2 diabetes mellitus without complications; K21.9 Gastro-esophageal reflux disease without esophagitis; G47.33 Obstructive sleep apnea (adult) (pediatric); Z98.890 Other specified postprocedural states; Z85.3 Personal history of malignant neoplasm of breast; Z87.891 Personal history of nicotine dependence; Z98.1 Arthrodesis status
CPT/HCPCS: 32555; 71045

== ENCOUNTER 2021-06-09 08:34 | Day surgery (SDC) | payer MEDICARE ==
[~2021-06-09] VITALS: Ht 167.6 cm; Wt 86.0 kg
[2021-06-09] VITALS (9 sets, daily range): BP systolic 127–158; BP diastolic 33–95
[~2021-06-09 08:34] MED LIST changes: +ESCI-8 PO; -ESCI10TA66 PO; +LISI40TA13 PO; -LISI40TA4 PO; +METF-1203 PO; -METF-950 PO
[2021-06-09] MEDS ORDERED: albumin 25% 100mL bottle x 1 IV PRN (09:05)
== END 2021-06-09 11:15 | disposition home or self-care (01) ==
LOC: SSTAY O 08:34
PROVIDERS: ATTEND Preventive Medicine Aerospace Medicine
DX: J90 Pleural effusion, not elsewhere classified (principal); F41.0 Panic disorder [episodic paroxysmal anxiety]; I10 Essential (primary) hypertension; E78.5 Hyperlipidemia, unspecified; E11.9 Type 2 diabetes mellitus without complications; K21.9 Gastro-esophageal reflux disease without esophagitis; G47.33 Obstructive sleep apnea (adult) (pediatric); Z85.3 Personal history of malignant neoplasm of breast; Z87.891 Personal history of nicotine dependence; Z98.890 Other specified postprocedural states; Z98.1 Arthrodesis status; Z79.899 Other long term (current) drug therapy; Z79.84 Long term (current) use of oral hypoglycemic drugs
CPT/HCPCS: 32555; 71045

== ENCOUNTER 2021-07-10 07:40 | Day surgery (SDC) | payer MEDICARE ==
[2021-07-10] VITALS (8 sets, daily range): BP systolic 133–160; BP diastolic 69–87
[~2021-07-10] VITALS: Ht 167.6 cm; Wt 86.4 kg
[~2021-07-10 07:40] MED LIST changes: -ALPR0.5T9 PO; -CHOL100062 PO
[2021-07-10] MEDS ORDERED: albumin 25% 100mL bottle x 1 IV PRN (07:55)
[2021-07-10] MEDS ORDERED: LIDOcaine 1% 30ml preserv. free vial SQ STA (08:20)
== END 2021-07-10 10:05 | disposition home or self-care (01) ==
LOC: SSTAY O 07:40
PROVIDERS: ATTEND Radiology Vascular & Interventional Radiology
DX: J90 Pleural effusion, not elsewhere classified (principal); F41.0 Panic disorder [episodic paroxysmal anxiety]; Z85.3 Personal history of malignant neoplasm of breast; Z87.891 Personal history of nicotine dependence; Z98.1 Arthrodesis status; Z98.890 Other specified postprocedural states; Z79.899 Other long term (current) drug therapy
CPT/HCPCS: 32555

== ENCOUNTER 2021-09-25 10:47 | Emergency (ER) | payer MEDICARE ==
[~2021-09-25] VITALS: Ht 167.6 cm; Wt 90.8 kg
[~2021-09-25 10:47] MED LIST changes: -FEXO-124 PO; +FEXO-271 PO
[2021-09-25 12:07] LABS: EOSINOPHILS # (AUTO) 0.2 X10'3 (0-0.9); EOSINOPHILS % (AUTO) 5.3 % (0-6); HEMATOCRIT 38.3 % (35.0-45.0); HEMOGLOBIN 12.7 g/dl (12.0-16.0); LYMPHOCYTES # (AUTO) 0.7 X10'3 (1.1-4.8); LYMPHOCYTES % (AUTO) 14.1 % (21-51); MEAN CORPUSCULAR HEMOGLOBIN 34.3 PG (27.0-31.0); MEAN CORPUSCULAR HGB CONC 33.2 g/dL (33.0-36.5); MEAN CORPUSCULAR VOLUME 103.3 FL (78-98); MEAN PLATELET VOLUME 7.1 FL (7.4-10.4); MONOCYTES # (AUTO) 0.6 X10'3 (0-0.9); MONOCYTES % (AUTO) 11.9 % (2-12); NEUTROPHILS # (AUTO) 3.2 X10'3 (1.8-7.7); NEUTROPHILS % (AUTO) 67.7 % (42-75); PLATELET COUNT 273 X10'3 (140-440); RED BLOOD COUNT 3.71 X10'6 (4.20-5.60); RED CELL DISTRIBUTION WIDTH 14.3 % (11.5-14.5); WHITE BLOOD COUNT 4.7 X10'3 (4.5-11.0)
[2021-09-25 12:18] LABS: ALANINE AMINOTRANSFERASE 16 U/L (12-78); ALBUMIN 3.5 G/DL (3.4-5.0); ALBUMIN/GLOBULIN RATIO 0.8 (1.1-1.5); ALKALINE PHOSPHATASE 88 IU/L (46-116); ANION GAP 10 (8-16); ASPARTATE AMINO TRANSFERASE 16 U/L (10-37); BILIRUBIN,TOTAL 0.4 MG/DL (0.1-1.0); BLOOD UREA NITROGEN 17 MG/DL (7-18); BUN/CREATININE RATIO 14.4 (6.6-38.0); CALCIUM 9.3 MG/DL (8.5-10.1); CHLORIDE 104 MMOL/L (99-107); CREATININE 1.18 MG/DL (0.40-0.90); GLUCOSE 102 MG/DL (70-104); POTASSIUM 4.4 MMOL/L (3.5-5.1); SODIUM 139 MMOL/L (135-145); TOTAL CARBON DIOXIDE 24.7 MMOL/L (24-32); TOTAL PROTEIN 7.7 G/DL (6.4-8.2); eGFR 45 ML/MIN
[2021-09-25] MEDS: LORazepam 1 MG tablet PO ONE (17:47)
[2021-09-25] MEDS: morphine 4 MG/ML inj SYRINge IM ONE (18:24)
--- NOTE | 2021-09-25 18:27 | NUR ---
morphine IM given in R deltoid, pt mispoke which side
[2021-09-25 18:28] VITALS: BP 148/84
== END 2021-09-25 19:22 | disposition home or self-care (01) ==
LOC: ER 10:48
DX: J90 Pleural effusion, not elsewhere classified (principal); E78.00 Pure hypercholesterolemia, unspecified; Z85.118 Personal history of other malignant neoplasm of bronchus and lung; Z85.3 Personal history of malignant neoplasm of breast; Z72.89 Other problems related to lifestyle; Z79.899 Other long term (current) drug therapy
CPT/HCPCS: 32555; 36415; 71045; 80053; 83880; 85025; 93005; 96372; 99285; J2270

== ENCOUNTER 2021-11-16 06:05 | Day surgery (SDC) | payer MEDICARE ==
[2021-11-16] VITALS (10 sets, daily range): BP systolic 137–170; BP diastolic 79–97
[~2021-11-16] VITALS: Ht 167.6 cm; Wt 89.4 kg
[2021-11-16] MEDS ORDERED: albumin 25% 100mL bottle x 1 IV PRN (06:30)
[2021-11-16] MEDS ORDERED: PREG50CA PO (08:10)
[2021-11-16] MEDS ORDERED: CALC600T62 PO (08:10)
[2021-11-16] MEDS ORDERED: FLUT15.87 NAS (08:10)
[2021-11-16] MEDS ORDERED: CEFD300C21 PO (08:10)
[2021-11-16] MEDS ORDERED: SIMV-45 PO (08:10)
[2021-11-16] MEDS ORDERED: IBUP-1984 PO (08:10)
[2021-11-16] MEDS ORDERED: FOLI1TAB27 PO (08:10)
[2021-11-16] MEDS ORDERED: PREG50CA64 PO (08:10)
[2021-11-16] MEDS ORDERED: LIDOcaine 1%/PF 5ML 10 MG/ML VIAL IJ ONE (08:15)
[2021-11-16] MEDS ORDERED: HYDROcodone/acetaminophen 5mg/325mg tablet PO ONE ×2 (08:40→09:40)
[2021-11-17] MEDS ORDERED: pneumococcal 23-VAL P-sac vacc 25 mcg/0.5ml vial IMVAC ONE (09:40)
== END 2021-11-16 10:30 | disposition home or self-care (01) ==
LOC: SSTAY O 06:05
PROVIDERS: ATTEND Radiology Vascular & Interventional Radiology
DX: J90 Pleural effusion, not elsewhere classified (principal); F41.0 Panic disorder [episodic paroxysmal anxiety]; I10 Essential (primary) hypertension; E11.9 Type 2 diabetes mellitus without complications; K21.9 Gastro-esophageal reflux disease without esophagitis; G47.33 Obstructive sleep apnea (adult) (pediatric); Z85.118 Personal history of other malignant neoplasm of bronchus and lung; Z85.3 Personal history of malignant neoplasm of breast; Z87.891 Personal history of nicotine dependence; Z98.890 Other specified postprocedural states; Z98.1 Arthrodesis status; Z79.84 Long term (current) use of oral hypoglycemic drugs; Z79.899 Other long term (current) drug therapy
CPT/HCPCS: 32555; J3490

== ENCOUNTER 2022-03-01 11:08 | Day surgery (SDC) | payer MEDICARE ==
[~2022-03-01] VITALS: Ht 162.6 cm; Wt 81.7 kg
[~2022-03-01 11:08] MED LIST changes: -CALC-855 PO; +CALC600T62 PO; -ESCI-8 PO; -ESTR42.510 VG; +LORA-835 PO; +LYR25C PO; -SIMV-42 PO; +SIMV-45 PO; +folic acid PO; +iron PO
[2022-03-01] MEDS ORDERED: normal saline 1000ml 1,000 ML IV PRN (11:30)
[2022-03-01] MEDS ORDERED: DULO60CA46 PO (11:57)
[2022-03-01] MEDS ORDERED: TRAM50TA2 (11:57)
[2022-03-01] MEDS ORDERED: GABAPENTIN (11:57)
[2022-03-01] MEDS ORDERED: PREG100C55 PO (11:57)
[2022-03-01] MEDS ORDERED: MORP100S7 PO (11:57)
[2022-03-01 12:14] VITALS: BP 126/78
[2022-03-01] MEDS ORDERED: LIDOcaine 1%/PF 5ML 10 MG/ML VIAL ONE (12:48)
[2022-03-01] MEDS ORDERED: midazolam 1 mg/ML 2ml injection ONE ×2 (12:49→13:28)
[2022-03-01] MEDS ORDERED: fentaNYL/PF 50MCG/1 ML 2ML syringe ONE ×2 (12:49→13:28)
[2022-03-01 13:50] VITALS: BP 157/89
[2022-03-01 14:05] VITALS: BP 163/98
[2022-03-01 14:20] VITALS: BP 133/89
[2022-03-01 14:35] VITALS: BP 147/97
[2022-03-01 15:05] VITALS: BP 141/85
== END 2022-03-01 15:30 | disposition hospice, home (50) ==
LOC: SSTAY O 11:08
PROVIDERS: ATTEND Radiology Vascular & Interventional Radiology
DX: J90 Pleural effusion, not elsewhere classified (principal); Z79.899 Other long term (current) drug therapy; Z98.890 Other specified postprocedural states; C34.90 Malignant neoplasm of unspecified part of unspecified bronchus or lung
CPT/HCPCS: 32550; 71045; 75989; 99152; 99153; J2250; J3010; J3490; J7030; A4620